=== PATIENT | female | born 1965 | race Two or more races ===

== ENCOUNTER 2019-05-28 11:20 | Emergency (ER) | payer OTHER ==
[~2019-05-28] VITALS: Ht 152.4 cm; Wt 87.1 kg
[~2019-05-28 11:20] MED LIST: CEPHALEXIN500 MG PO; LISINOPRIL40 MG PO; LORAZEPAM1 MG PO; NORCO 5-325 TA1 EACH PO; NORCO1 EA ORAL; PHENERGAN25 M1 PO; PROTONIX40 MG PO; ZOFRAN ODT8 MG PO; ZOFRAN4 MG PO
[2019-05-28] MEDS ORDERED: Solu-MEDROL 125mg Inj IVP ONE (12:00)
--- NOTE | 2019-05-28 12:00 | NUR ---
ED Nurse Note: Patient presents to ER due to RLE swelling, pain x 3 days; No redness noted. Reports no injury. Patient has hx of DVT and taking ASA/Plavix daily.
--- NOTE | 2019-05-28 12:06 | Emergency Room Report ---
History of Present Illness General Chief Complaint: Palpitations Source: Patient Present Illness HPI 53-year-old female history of CHF, history of COPD presents with shortness of breath, palpitations that started at 3 AM, patient was in out at an outside hospital left AGAINST MEDICAL ADVICE, presents with continued shortness of breath, no aggravating or alleviating factors, no nausea no vomiting, she does endorse some chest tightness, no aggravating or relieving factors., No radiation. Patient presents for evaluation Allergies: Coded Allergies: ASPIRIN (Verified Allergy, Intermediate, Hives, 10/13/12) Patient History Past Medical History: see triage record Social History: Reports: smoking Last Menstrual Period: na Reviewed Nursing Documentation: PMH: Agreed; PSxH: Agreed Nursing Documentation-PMH Past Medical History: No History, Except For Hx Cardiac Problems: Yes Hx Hypertension: Yes Hx Asthma: Yes Hx COPD: Yes Hx Diabetes: Yes Hx Cancer: No Hx Gastrointestinal Problems: Yes - GASTROENTERITIS Hx Neurological Problems: No Review of Systems Respiratory: Reports: shortness of breath, wheezing Cardiovascular: Reports: chest pain, palpitations All Other Systems: negative except mentioned in HPI Physical Exam Vital Signs Date Time Temp Pulse Resp B/P (MAP) Pulse Ox O2 Delivery O2 Flow Rate FiO2 05/28/19 11:30 98.4 89 20 98 Room Air Sp02 EP Interpretation: reviewed, normal General Appearance: well appearing, no apparent distress, alert Head: normocephalic, atraumatic Eyes: bilateral eye PERRL, bilateral eye EOMI ENT: uvula midline, moist mucus membranes Neck: supple, thyroid normal, supple/symm/no masses Respiratory: no respiratory distress, no retraction, no accessory muscle use, wheezing - Mild Cardiovascular #1: normal peripheral pulses, regular rate, rhythm, no edema, no gallop, no murmur Gastrointestinal: non tender, soft, no guarding, no rebound Musculoskeletal: normal inspection Neurologic: alert, oriented x3 Psychiatric: mood/affect normal Skin: no rash, warm/dry Medical Decision Making Diagnostic Impression: Primary Impression: Palpitations Additional Impressions: Dyspnea COPD (chronic obstructive pulmonary disease) ER Course Patient with shortness of breath, most likely a COPD exacerbation, given the wheezing on exam, will evaluate for CHF, patient states that, she needs to smoke before any breathing treatments start, she states she wants to walk outside and start smoking, patient counseled that if she leaves she will be leaving AGAINST MEDICAL ADVICE to go smoke, smoking counseling was given, patient became tearful stating that she needs cigarettes. Reevaluation 1 PM, patient is requesting morphine, patient is also requesting a DVT of her right leg, patient was seen walking to the bathroom in no respiratory distress, patient refused her breathing treatment, she states she is breathing fine, there is concern for secondary gain. Chest x-ray shows no signs of fluid overload, proBNP is low, troponin is negative, patient has been having dyspnea and shortness of breath, with mild wheezing most likely a COPD exacerbation, patient received steroids, no indication for antibiotics, no focal consolidation, low suspicion for ACS given the fact that patient has had a negative troponin with symptoms that were constant since 3 AM Patient states she does not want an ultrasound of her right leg, she just wanted morphine, joint decision-making was made with the patient, patient wants to go home, no indications for admission, will provide patient with prednisone and inhaler return precautions discussed Laboratory Tests Test 05/28/19 11:45 White Blood Count 12.2 K/UL (4.8-10.8) H Red Blood Count 4.05 M/UL (4.20-5.40) L Hemoglobin 11.7 G/DL (12.0-16.0) L Hematocrit 36.1 % (37.0-47.0) L Mean Corpuscular Volume 89 FL (80-99) Mean Corpuscular Hemoglobin 28.9 PG (27.0-31.0) Mean Corpuscular Hemoglobin Concent 32.5 G/DL (32.0-36.0) Red Cell Distribution Width 12.7 % (11.6-14.8) Platelet Count 388 K/UL (150-450) Mean Platelet Volume 5.8 FL (6.5-10.1) L Neutrophils (%) (Auto) 83.2 % (45.0-75.0) H Lymphocytes (%) (Auto) 11.0 % (20.0-45.0) L Monocytes (%) (Auto) 3.4 % (1.0-10.0) Eosinophils (%) (Auto) 1.7 % (0.0-3.0) Basophils (%) (Auto) 0.6 % (0.0-2.0) Sodium Level 134 MMOL/L (136-145) L Potassium Level 4.5 MMOL/L (3.5-5.1) Chloride Level 99 MMOL/L (98-107) Carbon Dioxide Level 29 MMOL/L (21-32) Anion Gap 6 mmol/L (5-15) Blood Urea Nitrogen 20 mg/dL (7-18) H Creatinine 0.7 MG/DL (0.55-1.30) Estimate Glomerular Filtration Rate > 60 mL/min (>60) Glucose Level 273 MG/DL (74-106) H Calcium Level 9.4 MG/DL (8.5-10.1) Total Bilirubin 0.2 MG/DL (0.2-1.0) Aspartate Amino Transferase (AST) 22 U/L (15-37) Alanine Aminotransferase (ALT) 23 U/L (12-78) Alkaline Phosphatase 118 U/L (46-116) H Total Creatine Kinase 49 U/L (26-308) Creatine Kinase MB 0.9 NG/ML (0.0-3.6) Creatine Kinase MB Relative Index 1.8 Troponin I 0.000 ng/mL (0.000-0.056) Pro-B-Type Natriuretic Peptide 721 pg/mL (0-125) H Total Protein 7.2 G/DL (6.4-8.2) Albumin 3.1 G/DL (3.4-5.0) L Globulin 4.1 g/dL Albumin/Globulin Ratio 0.8 (1.0-2.7) L Lipase 129 U/L (73-393) EKG Diagnostic Results EKG Time: 11:31 EP Interpretation: NSR, 91, QTc 447, no acute ST elevations, normal axis Rate: normal Rhythm: NSR ST Segments: no acute changes Rhythm Strip Diag. Results Rhythm Strip Time: 12:05 EP Interpretation: yes Rate: 85 Rhythm: NSR, no PVC's, no ectopy Chest X-Ray Diagnostic Results Chest X-Ray Diagnostic Results : Chest X-Ray Ordered: Yes # of Views/Limited/Complete: 1 View Indication: Shortness of Breath EP Interpretation: Yes Interpretation: no consolidation, no effusion, no pneumothorax, no acute cardiopulmonary disease Impression: No acute disease Electronically Signed by: Dewey Guadalupe MD Last Vital Signs Date Time Temp Pulse Resp B/P (MAP) Pulse Ox O2 Delivery O2 Flow Rate FiO2 05/28/19 11:30 98.4 89 20 98 Room Air Disposition: HOME, SELF-CARE Condition: Improved Scripts Prednisone* (PREDNISONE*) 20 Mg Tablet 60 MG ORAL DAILY, #12 TAB Prov: Dewey Guadalupe MD 05/28/19 Albuterol Sulfate* (ALBUTEROL SULFATE MDI*) 8.5 Gm Hfa.aer.ad 2 PUFF INH Q6H PRN for Shortness of Breath, #1 EA 0 Refills Prov: Dewey Guadalupe MD 05/28/19 Referrals: [facility] Patient Instructions: Chronic Obstructive Pulmonary Disease Exacerbation Additional Instructions: The patient was provided with discharge instructions, notified to follow-up with a primary care doctor and or specialist in the next 24-48 hours, and to return to the ED if they have worsening of their symptoms. Please note that this report is being documented using DRAGON technology. This can lead to erroneous entry secondary to incorrect interpretation by the dictating instrument. Dewey Guadalupe MD May 28, 2019 12:06
[2019-05-28 12:15] LABS: BASOPHILS % (AUTO) 0.6 % (0.0-2.0); EOSINOPHILS % (AUTO) 1.7 % (0.0-3.0); HEMATOCRIT 36.1 % (37.0-47.0); HEMOGLOBIN 11.7 G/DL (12.0-16.0); MEAN CORPUSCULAR VOLUME 89 FL (80-99); MONOCYTES % (AUTO) 3.4 % (1.0-10.0); NEUTROPHILS % (AUTO) 83.2 % (45.0-75.0); PLATELET COUNT 388 K/UL (150-450); RED BLOOD COUNT 4.05 M/UL (4.20-5.40); RED CELL DISTRIBUTION WIDTH 12.7 % (11.6-14.8); WHITE BLOOD COUNT 12.2 K/UL (4.8-10.8)
--- NOTE | 2019-05-28 12:15 | NUR ---
ED Nurse Note: Patient requested to be outside ER for smoking. ERMD at bedside and explained that patient is not able to go outside form smoking. Patient became upset and states 'You can't keep me here' in loud voice. Offered nicotine patch. Patient states 'you can try.'. Called pharmacy.
[2019-05-28 12:17] LABS: ANION GAP 6 mmol/L (5-15); BLOOD UREA NITROGEN 20 mg/dL (7-18); CALCIUM 9.4 MG/DL (8.5-10.1); CARBON DIOXIDE 29 MMOL/L (21-32); CHLORIDE 99 MMOL/L (98-107); CREATININE 0.7 MG/DL (0.55-1.30); POTASSIUM 4.5 MMOL/L (3.5-5.1); SODIUM 134 MMOL/L (136-145)
[2019-05-28] MEDS ORDERED: AMLODIPINE BESY10 MG ORAL (12:23)
[2019-05-28] MEDS ORDERED: FOSAMAX70 MG ORAL (12:23)
[2019-05-28] MEDS ORDERED: CLOPIDOGREL75 MG ORAL (12:23)
[2019-05-28] MEDS ORDERED: GABAPENTIN400 MG ORAL (12:23)
[2019-05-28] MEDS ORDERED: ASPIRIN81 MG ORAL (12:23)
[2019-05-28] MEDS ORDERED: ATORVASTATIN CA40 MG ORAL (12:23)
[2019-05-28] MEDS ORDERED: ZANTAC150 MG ORAL (12:23)
[2019-05-28] MEDS: Ipratropium 0.02% Inh Soln 2.5ml UD HHN SCH ×3 (12:30→12:58)
[2019-05-28] MEDS: Albuterol ud Inhalation HHN SCH ×3 (12:30→12:58)
[2019-05-28 12:31] LABS: ALANINE AMINOTRANSFERASE 23 U/L (12-78); ALBUMIN 3.1 G/DL (3.4-5.0); ALBUMIN/GLOBULIN RATIO 0.8 (1.0-2.7); ALKALINE PHOSPHATASE 118 U/L (46-116); ASPARTATE AMINO TRANSFERASE 22 U/L (15-37); BILIRUBIN,TOTAL 0.2 MG/DL (0.2-1.0); CKMB 0.9 NG/ML (0.0-3.6); CREATINE KINASE 49 U/L (26-308)
[2019-05-28] MEDS ORDERED: Morphine Sulfate 4mg/ml Inj (IV USE ONLY) IVP ONE (12:45)
--- NOTE | 2019-05-28 13:39 | NUR ---
ED Nurse Note: Patient requested food. Offered sandwiches, juice, milk and chips or meal tray, but patient refused and states she wants to go to vending machine. RN explained to patient that RN needs to remove IV if patient goes outside emergery room.
[2019-05-28] MEDS ORDERED: ALBUTEROL SULF8.5 GM INH (13:43)
[2019-05-28] MEDS ORDERED: PREDNISONE20 MG ORAL (13:43)
[2019-05-28 13:51] VITALS: BP 154/94
--- NOTE | 2019-05-28 13:51 | NUR ---
ED Nurse Note: Patient is being discharged from medical care. Patient awake, alert, oriented x 4. Regular, unlabored breathing noted. Patient wanted to wait for caregiver in the waiting room. Patient states 'I take Morphine at home' and reports no no dizzines at this time. D/C instruction and prescriptions given. Patient verbalized understanding of it. Patient ambulated out using wheelchair as walker with all her belongings. Steady gait noted.
--- NOTE | 2019-05-28 15:11 | Diagnostic Imaging Report ---
Indication: Cough, dyspnea Technique: One view of the chest Comparison: none Findings: The heart is enlarged. The aorta is elongated and tortuous and ectatic. Retrocardiac hiatal hernia demonstrated. The lungs and pleural spaces are clear. Postsurgical changes of the right shoulder noted Impression: Cardiomegaly. No definite acute process
== END 2019-05-28 13:50 | disposition home or self-care (01) ==
LOC: EMR 13:06
DX: R00.2 Palpitations (principal); J44.9 Chronic obstructive pulmonary disease, unspecified; I10 Essential (primary) hypertension; E11.9 Type 2 diabetes mellitus without complications; Z88.6 Allergy status to analgesic agent
CPT/HCPCS: 36415; 71045; 80053; 82550; 82553; 83690; 83880; 84484; 85025; 94664; 96374; 96375; 99284; J2270; J2405; J2930

== ENCOUNTER 2019-06-02 11:37 | Emergency (ER) | payer OTHER ==
[~2019-06-02] VITALS: Ht 152.4 cm; Wt 87.1 kg
[~2019-06-02 11:37] MED LIST changes: +ALBUTEROL SULF8.5 GM INH; +AMLODIPINE BESY10 MG ORAL; +ASPIRIN81 MG ORAL; +ATORVASTATIN CA40 MG ORAL; +CLOPIDOGREL75 MG ORAL; +FOSAMAX70 MG ORAL; +GABAPENTIN400 MG ORAL; +PREDNISONE20 MG ORAL; +ZANTAC150 MG ORAL
--- NOTE | 2019-06-02 11:54 | NUR ---
ED Nurse Note: Pt came in due to right leg and foot swelling for a couple of weeks. Hx of CHF and takes lasix at home. Pt was seen here at [facility] 05/29/19 for same symptom. AAO x4, ambulates with her walker with non labored breathing.
--- NOTE | 2019-06-02 13:15 | Emergency Room Report ---
History of Present Illness General Chief Complaint: Edema Source: Patient Present Illness HPI Patient is a 53-year-old female who presented after increased right lower extremity discomfort and swelling. Patient reports having increased pain to the right foot. She had previously been wheelchair-bound. She was noted to have prior history of cigarette smoking. She had previously been seen was noted to have unremarkable laboratory testing. She reports having worsening discomfort and swelling. She does have prior history of osteoporosis and is currently wheelchair-bound due to plantar heel spurs. Allergies: Coded Allergies: No Known Allergies (Unverified , 06/02/19) Patient History Past Medical History: see triage record Now: No Reviewed Nursing Documentation: PMH: Agreed; PSxH: Agreed Nursing Documentation-PMH Past Medical History: No History, Except For Hx Cardiac Problems: Yes Hx Hypertension: Yes Hx Asthma: Yes Hx COPD: Yes Hx Diabetes: Yes Hx Cancer: No Hx Gastrointestinal Problems: Yes - GASTROENTERITIS Hx Neurological Problems: No Review of Systems All Other Systems: negative except mentioned in HPI Physical Exam Vital Signs Date Time Temp Pulse Resp B/P (MAP) Pulse Ox O2 Delivery O2 Flow Rate FiO2 06/02/19 11:44 98.2 96 20 131/78 (95) 97 Room Air Sp02 EP Interpretation: reviewed, normal General Appearance: normal inspection, no apparent distress, alert, GCS 15, obese, Chronically Ill Head: atraumatic ENT: normal ENT inspection, hearing grossly normal, normal voice Neck: normal inspection, full range of motion, supple, no bony tend Respiratory: normal inspection, lungs clear, normal breath sounds, no respiratory distress, no retraction, no wheezing Cardiovascular #1: regular rate, rhythm, edema - right lower extremity Gastrointestinal: normal inspection, normal bowel sounds, non tender, soft, no guarding, no hernia Genitourinary: no CVA tenderness Musculoskeletal: normal inspection, back normal, normal range of motion Neurologic: normal inspection, alert, oriented x3, responsive, reference data expert III-XII nml as tested, speech normal Psychiatric: normal inspection, judgement/insight normal, mood/affect normal Medical Decision Making Diagnostic Impression: Primary Impression: Chronic pain Additional Impressions: Heel spur Dependent edema ER Course She presented for right lower extremity swelling. The differential diagnosis include was not limited to congestive heart failure, deep venous thrombosis, cellulitis, heat edema among others. Because of complexity of patient's case imaging studies were ordered. Duplex ultrasound of the right lower extremity showed no evidence of deep venous thrombosis. Patient recently had lower extremity x-rays which did not show any fracture but showed marketed degenerative changes. Patient was noted to have some prior history of arthritis and this appears to be some exacerbation of her arthritis this time. Patient was given pain medications as well as prescriptions. She was advised to follow-up with her primary care physician for recheck she was advised to return if worse. Labs Test 06/02/19 13:09 06/02/19 13:40 Troponin I 0.000 ng/mL (0.000-0.056) White Blood Count 8.6 K/UL (4.8-10.8) Red Blood Count 4.20 M/UL (4.20-5.40) Hemoglobin 11.9 G/DL (12.0-16.0) Hematocrit 37.5 % (37.0-47.0) Mean Corpuscular Volume 89 FL (80-99) Mean Corpuscular Hemoglobin 28.4 PG (27.0-31.0) Mean Corpuscular Hemoglobin Concent 31.8 G/DL (32.0-36.0) Red Cell Distribution Width 12.8 % (11.6-14.8) Platelet Count 364 K/UL (150-450) Mean Platelet Volume 6.2 FL (6.5-10.1) Neutrophils (%) (Auto) 66.9 % (45.0-75.0) Lymphocytes (%) (Auto) 21.1 % (20.0-45.0) Monocytes (%) (Auto) 5.2 % (1.0-10.0) Eosinophils (%) (Auto) 5.5 % (0.0-3.0) Basophils (%) (Auto) 1.3 % (0.0-2.0) Prothrombin Time 10.1 SEC (9.30-11.50) Prothromb Time International Ratio 0.9 (0.9-1.1) Activated Partial Thromboplast Time 28 SEC (23-33) Urine Color Yellow Urine Appearance Slightly cloudy Urine pH 7 (4.5-8.0) Urine Specific [place] 1.010 (1.005-1.035) Urine Protein 2+ (NEGATIVE) Urine Glucose (UA) 4+ (NEGATIVE) Urine Ketones Negative (NEGATIVE) Urine Blood Negative (NEGATIVE) Urine Nitrite Negative (NEGATIVE) Urine Bilirubin Negative (NEGATIVE) Urine Urobilinogen Normal MG/DL (0.0-1.0) Urine Leukocyte Esterase 3+ (NEGATIVE) Urine RBC 0-2 /HPF (0 - 2) Urine WBC 5-10 /HPF (0 - 2) Urine Squamous Epithelial Cells Many /LPF (NONE/OCC) Urine Bacteria Few /HPF (NONE) Sodium Level 134 MMOL/L (136-145) Potassium Level 4.2 MMOL/L (3.5-5.1) Chloride Level 97 MMOL/L (98-107) Carbon Dioxide Level 32 MMOL/L (21-32) Anion Gap 5 mmol/L (5-15) Blood Urea Nitrogen 17 mg/dL (7-18) Creatinine 0.7 MG/DL (0.55-1.30) Estimat Glomerular Filtration Rate > 60 mL/min (>60) Glucose Level 259 MG/DL (74-106) Calcium Level 9.5 MG/DL (8.5-10.1) Total Bilirubin 0.3 MG/DL (0.2-1.0) Aspartate Amino Transf (AST/SGOT) 15 U/L (15-37) Alanine Aminotransferase (ALT/SGPT) 14 U/L (12-78) Alkaline Phosphatase 121 U/L (46-116) Total Protein 7.3 G/DL (6.4-8.2) Albumin 3.3 G/DL (3.4-5.0) Globulin 4.0 g/dL Albumin/Globulin Ratio 0.8 (1.0-2.7) Thyroid Stimulating Hormone (TSH) 1.078 uiU/mL (0.358-3.740) Last Vital Signs Date Time Temp Pulse Resp B/P (MAP) Pulse Ox O2 Delivery O2 Flow Rate FiO2 06/02/19 11:54 96 20 Room Air 06/02/19 11:44 98.2 131/78 (95) 97 Status: improved Disposition: HOME, SELF-CARE Condition: Stable Scripts Hydrochlorothiazide* (HYDROCHLOROTHIAZIDE*) 25 Mg Tablet 25 MG ORAL DAILY, #10 TAB Prov: Wes Mae MD 06/02/19 Hydrocodone Bit/Acetaminophen 5-325* (NORCO 5-325*) 1 Each Tablet 1 TAB ORAL Q6H PRN for For Pain, #10 TAB 0 Refills Prov: Wes Mae MD 06/02/19 Wes Mae MD Jun 02, 2019 13:15
--- NOTE | 2019-06-02 13:15 | NUR ---
ED Nurse Note: Found patient outside ER smoking cigarettes. Family member with her. No IV access. RN explained to pt that smoking is not allowed in the hospital.
--- NOTE | 2019-06-02 13:44 | NUR ---
ED Nurse Note: Collected blood/urine then sent.
[2019-06-02 14:01] LABS: APPEARANCE,URINE SLIGHTLY CLOUDY; BILIRUBIN, URINE NEGATIVE (NEGATIVE); GLUCOSE, URINE (UA) 4+ (NEGATIVE); KETONES,URINE NEGATIVE (NEGATIVE); LEUKOCYTE ESTERASE ,URINE 3+ (NEGATIVE); NITRITE,URINE NEGATIVE (NEGATIVE); PH,URINE 7 (4.5-8.0); PROTEIN,URINE 2+ (NEGATIVE); UROBILINOGEN,URINE NORMAL MG/DL (0.0-1.0)
[2019-06-02 14:02] LABS: COLOR,URINE YELLOW
[2019-06-02 14:03] LABS: BASOPHILS % (AUTO) 1.3 % (0.0-2.0); EOSINOPHILS % (AUTO) 5.5 % (0.0-3.0); HEMATOCRIT 37.5 % (37.0-47.0); HEMOGLOBIN 11.9 G/DL (12.0-16.0); LYMPHOCYTES % (AUTO) 21.1 % (20.0-45.0); MEAN CORPUSCULAR VOLUME 89 FL (80-99); MONOCYTES % (AUTO) 5.2 % (1.0-10.0); NEUTROPHILS % (AUTO) 66.9 % (45.0-75.0); PLATELET COUNT 364 K/UL (150-450); RED CELL DISTRIBUTION WIDTH 12.8 % (11.6-14.8); WHITE BLOOD COUNT 8.6 K/UL (4.8-10.8)
[2019-06-02 14:12] LABS: INR 0.9 (0.9-1.1)
[2019-06-02 14:14] LABS: ANION GAP 5 mmol/L (5-15); BLOOD UREA NITROGEN 17 mg/dL (7-18); CALCIUM 9.5 MG/DL (8.5-10.1); CARBON DIOXIDE 32 MMOL/L (21-32); CHLORIDE 97 MMOL/L (98-107); CREATININE 0.7 MG/DL (0.55-1.30); POTASSIUM 4.2 MMOL/L (3.5-5.1); SODIUM 134 MMOL/L (136-145)
[2019-06-02 14:26] LABS: ALANINE AMINOTRANSFERASE 14 U/L (12-78); ALBUMIN 3.3 G/DL (3.4-5.0); ALBUMIN/GLOBULIN RATIO 0.8 (1.0-2.7); ALKALINE PHOSPHATASE 121 U/L (46-116); ASPARTATE AMINO TRANSFERASE 15 U/L (15-37); BILIRUBIN,TOTAL 0.3 MG/DL (0.2-1.0)
[2019-06-02] MEDS ORDERED: Morphine Sulfate 2mg/ml Inj(IV/IM USE ONLY) IVP ONE (14:30)
[2019-06-02] MEDS ORDERED: NORCO 5-325 TA1 EACH ORAL (14:33)
[2019-06-02] MEDS ORDERED: HYDROCHLOROTHIA25 MG ORAL (14:33)
[2019-06-02 14:38] VITALS: BP 135/78
--- NOTE | 2019-06-02 14:38 | NUR ---
ER DISCHARGE NOTE: Patient is cleared to be discharged per ERMD, pt is aox4, on room air, with stable vital signs. pt was given dc and prescription instructions, pt was able to verbalize understanding, pt id band and iv site removed without complications. pt is able to ambulate with steady gait. pt took all belongings.
--- NOTE | 2019-06-02 14:47 | Diagnostic Imaging Report ---
Indication: Right lower extremity pain and swelling. Technique: Duplex Doppler imaging performed from the right common femoral vein to the popliteal vein. FINDINGS: Normal compressibility demonstrated from the common femoral vein to the popliteal vein. Respiratory phasicity and good augmentation demonstrated on waveform analysis. There is no evidence of thrombosis. IMPRESSION: No evidence of deep venous thrombosis within the right lower extremity.
== END 2019-06-02 14:38 | disposition home or self-care (01) ==
LOC: EMR 12:19
DX: G89.29 Other chronic pain (principal); M77.30 Calcaneal spur, unspecified foot; R60.0 Localized edema; I10 Essential (primary) hypertension; J45.909 Unspecified asthma, uncomplicated; J44.9 Chronic obstructive pulmonary disease, unspecified; E11.9 Type 2 diabetes mellitus without complications; M81.0 Age-related osteoporosis without current pathological fracture; Z99.3 Dependence on wheelchair
CPT/HCPCS: 36415; 80053; 81001; 84443; 84484; 85025; 85610; 85730; 93005; 93971; 96374; 99284; J2270

== ENCOUNTER 2019-09-07 21:14 | Emergency (ER) | payer OTHER ==
[~2019-09-07 21:14] MED LIST changes: +HYDROCHLOROTHIA25 MG ORAL; +NORCO 5-325 TA1 EACH ORAL
--- NOTE | 2019-09-07 21:21 | Emergency Room Report ---
History of Present Illness General Chief Complaint: To Be Triaged Present Illness HPI Is a 54-year-old female who presents with chief complaint of chest pain. She checked in with complaint of chest pain. She is been here multiple times for different pain complaint. Since the ER was full, I asked food quality technician to get an EKG in the triage room so I can take a look at it. food quality technician said that patient refused to have EKG done outside. She says she will leave and come back later. I did not see this patient. The triage nurse was able to convince patient to get an EKG. After EKG, she told the triage nurse that she just left [facility] because she did not like the care there. She did not get her occasion. I reviewed the EKG I see no evidence of acute ST elevation LA. Patient went back to waiting room and then left right afterward. I did not see this patient. Allergies: Coded Allergies: No Known Allergies (Unverified , 06/02/19) Nursing Documentation-H Hx Cardiac Problems: Yes Hx Hypertension: Yes Hx Asthma: Yes Hx COPD: Yes Hx Diabetes: Yes Hx Cancer: No Hx Gastrointestinal Problems: Yes - GASTROENTERITIS Hx Neurological Problems: No Medical Decision Making Diagnostic Impression: Primary Impression: Chest pain Qualified Codes: R07.9 - Chest pain, unspecified EKG Diagnostic Results Rate: tachycardiac Rhythm: NSR ST Segments: no acute changes Status: unchanged Disposition: LEFT W/OUT BEING SEEN Edson Nickerson MD Sep 07, 2019 21:21
--- NOTE | 2019-09-07 21:24 | NUR ---
attempted to do EKG patient refused and told me she wanted to go home
--- NOTE | 2019-09-07 21:35 | NUR ---
ED Nurse Note: EKG DONE PER ERMD ORDER, EKG REVIEWED BY DR. MCCAIN.
--- NOTE | 2019-09-07 21:55 | NUR ---
PT NOT IN THE WAITING ROOM FOR TRIAGE
--- NOTE | 2019-09-07 22:00 | NUR ---
PT NOT IN THE WAITING ROOM
--- NOTE | 2019-09-07 22:15 | NUR ---
PT NOT IN THE WAITING ROOM.
== END 2019-09-07 22:15 | disposition left against medical advice (07) ==
LOC: EMR 22:15
DX: R07.9 Chest pain, unspecified (principal); K52.9 Noninfective gastroenteritis and colitis, unspecified; I10 Essential (primary) hypertension; J44.9 Chronic obstructive pulmonary disease, unspecified; E11.9 Type 2 diabetes mellitus without complications; Z53.1 Procedure and treatment not carried out because of patient's decision for reasons of belief and group pressure; R00.0 Tachycardia, unspecified